=== PATIENT | male | born 1985 | race Caucasian/White ===

== ENCOUNTER 2024-12-22 01:43 | Inpatient (IN) | payer SELFPAY ==
[2024-12-22] MEDS ORDERED: niCARdipine 25 MG/10 ML SDV ONE ×3 (01:55→05:57)
[2024-12-22 03:25] LABS: Acetaminophen Less than 10 mcg/mL (Less than 10); Salicylate Less than 8.0 mg/dL (Less than 8.0)
[2024-12-22 03:50] LABS: #Basophils 0.09 10x3/uL (0.0-0.2); #Eosinophils 0.31 10x3/uL (0.0-0.7); #Monocytes 1.01 10x3/uL (0.11-0.59); #Neutrophils 8.70 10x3/uL (1.40-6.50); %Basophils 0.7 % (0.0-1.0); %Eosinophils 2.2 % (0.0-10.0); %Lymphocytes 26.4 % (21.0-51.0); %Monocytes 7.3 % (0.0-10.0); %Neutrophils 62.9 % (42.0-75.0); Hematocrit 50.6 % (42.0-52.0); Hemoglobin 17.5 g/dL (14.0-18.0); Mean Corpuscular Hemoglobin 29.5 pg (27.0-31.0); Mean Corpuscular Volume 85.3 fL (78.0-98.0); Platelet Count 283 10x3/uL (130-400); Red Blood Cell (RBC) Count 5.93 mill/uL (4.70-6.10); White Blood Cell (WBC) Count 13.84 10x3/uL (4.8-10.8)
[2024-12-22 04:00] LABS: ALT (SGPT) 29 U/L (Less than 45); AST (SGOT) 36 U/L (11-34); Albumin 4.6 g/dL (3.1-4.5); Alkaline Phosphatase 106 U/L (40-110); Anion Gap 12 mmol/L (10-20); BUN (Urea Nitrogen) 8 mg/dL (8.9-20.6); Bilirubin, Total 0.6 mg/dL (0.3-1.2); CK (CPK) 87 U/L (30-200); Calc. Creatinine Clearance 0 mL/min (70-130); Calcium 9.3 mg/dL (7.8-10.44); Carbon Dioxide 24 mmol/L (22-29); Chloride 107 mmol/L (98-107); Globulin 3.4 g/dL (2.4-3.5); Glucose 107 mg/dL (70-105); Potassium 3.7 mmol/L (3.5-5.1); Sodium 139 mmol/L (136-145)
[2024-12-22 04:05] LABS: Troponin I Less than 0.010 ng/mL (< 0.028)
[2024-12-22 04:16] LABS: Bacteria/HPF None Seen HPF (None Seen); CAUTI Indications for Culture Pelvic or flank pain; Glucose, Urine (Dipstick) Normal (Negative); Leukocyte Negative Leu/uL (Negative); Protein, Urine (Dipstick) Negative (Neg-Trace); RBC/HPF 0-3 HPF (0-3); Specific Gravity, Urine 1.009 (1.002-1.036); WBC/HPF 0-3 HPF (0-3)
[2024-12-22 04:19] LABS: Cocaine Metabolite Screen Negative (Negative); THC/Cannabinoid Screen Negative (Negative); Tricyclic Screen Negative (Negative)
[2024-12-22 04:26] LABS: Urine Culture Reflex No No
[2024-12-22] MEDS ORDERED: Ondansetron PF 4 MG/2 ML Vial IVP PRN (05:49)
[2024-12-22] MEDS ORDERED: niCARdipine 25 MG in Sodium Chloride 0.9% 250 ML 250 ML IVPB SCH ×3 (06:00→12:15)
[2024-12-22] MEDS ORDERED: niCARdipine 40MG In NaCl 40 MG/200 ML BAG IVPB SCH (06:30)
[2024-12-22] MEDS: niCARdipine 25 MG in Sodium Chloride 0.9% 250 ML 250 ML IVPB SCH (06:39)
[2024-12-22 06:48] VITALS: BMI 31.8
[2024-12-22 07:42] LABS: Troponin I 0.017 ng/mL (< 0.028)
[2024-12-22] MEDS: Enoxaparin 40 MG (0.4 mL) SYRINGE SC SCH (09:13)
[2024-12-22] MEDS: Lisinopril 20 MG TAB PO SCH ×2 (09:13→20:14)
[2024-12-22 09:39] LABS: Troponin I 0.011 ng/mL (< 0.028)
[2024-12-22] MEDS: Acetaminophen 325 MG TAB PO PRN (10:25)
[2024-12-22] MEDS: cloNIDine 0.1 MG TAB PO SCH (11:03)
[2024-12-22] MEDS: hydrALAZINE 20 MG/ML VIAL SLOW IVP PRN (19:19)
[2024-12-23 05:14] LABS: #Basophils 0.11 10x3/uL (0.0-0.2); #Eosinophils 0.38 10x3/uL (0.0-0.7); #Monocytes 0.94 10x3/uL (0.11-0.59); #Neutrophils 6.64 10x3/uL (1.40-6.50); %Basophils 0.9 % (0.0-1.0); %Eosinophils 3.2 % (0.0-10.0); %Lymphocytes 31.8 % (21.0-51.0); %Monocytes 7.8 % (0.0-10.0); %Neutrophils 55.4 % (42.0-75.0); Hematocrit 47.8 % (42.0-52.0); Hemoglobin 16.1 g/dL (14.0-18.0); Mean Corpuscular Hemoglobin 29.3 pg (27.0-31.0); Mean Corpuscular Volume 86.9 fL (78.0-98.0); Platelet Count 279 10x3/uL (130-400); Red Blood Cell (RBC) Count 5.50 mill/uL (4.70-6.10); White Blood Cell (WBC) Count 11.99 10x3/uL (4.8-10.8)
[2024-12-23 06:16] LABS: Anion Gap 13 mmol/L (10-20); BUN (Urea Nitrogen) 12 mg/dL (8.9-20.6); Calc. Creatinine Clearance 137 mL/min (70-130); Calcium 8.7 mg/dL (7.8-10.44); Carbon Dioxide 21 mmol/L (22-29); Chloride 107 mmol/L (98-107); Glucose 94 mg/dL (70-105); Potassium 3.5 mmol/L (3.5-5.1); Sodium 137 mmol/L (136-145)
[2024-12-24 04:53] LABS: #Basophils 0.12 10x3/uL (0.0-0.2); #Eosinophils 0.45 10x3/uL (0.0-0.7); #Monocytes 1.01 10x3/uL (0.11-0.59); #Neutrophils 6.36 10x3/uL (1.40-6.50); %Basophils 0.9 % (0.0-1.0); %Eosinophils 3.5 % (0.0-10.0); %Lymphocytes 37.3 % (21.0-51.0); %Monocytes 7.9 % (0.0-10.0); %Neutrophils 49.9 % (42.0-75.0); Hematocrit 47.3 % (42.0-52.0); Hemoglobin 15.9 g/dL (14.0-18.0); Mean Corpuscular Hemoglobin 29.0 pg (27.0-31.0); Mean Corpuscular Volume 86.3 fL (78.0-98.0); Platelet Count 256 10x3/uL (130-400); Red Blood Cell (RBC) Count 5.48 mill/uL (4.70-6.10); White Blood Cell (WBC) Count 12.78 10x3/uL (4.8-10.8)
[2024-12-24 05:17] LABS: Anion Gap 12 mmol/L (10-20); BUN (Urea Nitrogen) 16 mg/dL (8.9-20.6); Calc. Creatinine Clearance 152 mL/min (70-130); Calcium 8.9 mg/dL (7.8-10.44); Carbon Dioxide 22 mmol/L (22-29); Chloride 106 mmol/L (98-107); Glucose 86 mg/dL (70-105); Potassium 3.7 mmol/L (3.5-5.1); Sodium 136 mmol/L (136-145)
[2024-12-24 07:59] VITALS: TEMP 97.6
[2024-12-24 12:02] VITALS: BP 148/88
== END 2024-12-24 12:12 | disposition home or self-care (01) | DRG 305 ==
LOC: ERS 01:43 → CCU 04:51 → T4-B 17:20
PROVIDERS: ADMIT Internal Medicine; ATTEND Family Medicine
DX: I16.0 Hypertensive urgency (principal); F17.210 Nicotine dependence, cigarettes, uncomplicated; F10.10 Alcohol abuse, uncomplicated; D72.829 Elevated white blood cell count, unspecified; I10 Essential (primary) hypertension; Z90.49 Acquired absence of other specified parts of digestive tract; Z82.49 Family history of ischemic heart disease and other diseases of the circulatory system; Z79.899 Other long term (current) drug therapy
CPT/HCPCS: 36415; 71045; 80048; 80053; 80306; 80307; 81001; 82140; 82550; 83880; 84484; 85025; 93005; 96365; 96366; 96375; J0360; J1650; J7030; J7050